=== PATIENT | male | born 1955 | race Caucasian/White ===

== ENCOUNTER 2017-08-07 11:34 | Emergency (ER) | payer OTHER ==
[~2017-08-07] VITALS: Ht 182.9 cm; Wt 93.0 kg
[2017-08-07 11:40] VITALS: BP 127/69
[2017-08-07] MEDS ORDERED: IBUPROFEN 600 MG TABLET PO ONE ×2 (12:56→13:00)
== END 2017-08-07 13:57 | disposition home or self-care (01) ==
LOC: ER 11:36
DX: L03.032 Cellulitis of left toe (principal); I10 Essential (primary) hypertension; F17.200 Nicotine dependence, unspecified, uncomplicated; G89.29 Other chronic pain
CPT/HCPCS: 73620; 99284; A4606; Z7610

== ENCOUNTER 2017-10-02 12:23 | Emergency (ER) | payer OTHER ==
[~2017-10-02] VITALS: Ht 182.9 cm; Wt 88.9 kg
[2017-10-02 12:23] VITALS: BP 98/69
--- NOTE | 2017-10-02 12:56 | NUR ---
PATIENT TO ED DT SOB X2 DAYS [employer]ATT[employer]. PATIENT IS AAO4. APPEARS IN NO APPARENT DISTRESS. SATIGN WELL ON ROOM AIR. HX OF ASTHMA
[2017-10-02] MEDS ORDERED: predniSONE 20 MG TABLET ONE (12:57)
[2017-10-02] MEDS ORDERED: predniSONE 20 MG TABLET PO ONE (13:00)
[2017-10-02] MEDS ORDERED: IPRATROPIUM NEB FS 0.5 MG/2.5 ML AMPUL.NEB NEB ONE (13:00)
[2017-10-02] MEDS: ALBUTEROL FS 2.5 MG/3 ML VIAL.NEB NEB ONE ×2 (13:02→13:11)
[2017-10-02] MEDS ORDERED: IPRATROPIUM NEB FS 0.5 MG/2.5 ML AMPUL.NEB ONE (13:02)
[2017-10-02] MEDS ORDERED: ALBUTEROL FS 2.5 MG/3 ML VIAL.NEB ONE (13:02)
== END 2017-10-02 13:37 | disposition home or self-care (01) ==
LOC: ER 12:24
DX: J45.901 Unspecified asthma with (acute) exacerbation (principal); I10 Essential (primary) hypertension; F17.200 Nicotine dependence, unspecified, uncomplicated
CPT/HCPCS: 94640; 99283; A4606; J7512; Z7610

== ENCOUNTER 2019-03-25 12:02 | Emergency (ER) | payer OTHER ==
[~2019-03-25] VITALS: Ht 182.9 cm; Wt 83.9 kg
[2019-03-25 12:14] VITALS: BP 124/68
== END 2019-03-25 13:51 | disposition home or self-care (01) ==
LOC: ER 12:02
DX: G89.29 Other chronic pain (principal); M54.5 Low back pain; F11.20 Opioid dependence, uncomplicated; I10 Essential (primary) hypertension; J45.909 Unspecified asthma, uncomplicated; F17.200 Nicotine dependence, unspecified, uncomplicated

== ENCOUNTER 2021-12-14 12:48 | Emergency (ER) | payer OTHER ==
[~2021-12-14] VITALS: Ht 182.9 cm; Wt 83.5 kg
[2021-12-14 13:08] VITALS: BP 162/97
--- NOTE | 2021-12-14 15:20 | NUR ---
TAKEN TO CT
[2021-12-14] MEDS ORDERED: HYDROCODONE/APAP 5/325MG TABLET ONE (15:30)
[2021-12-14] MEDS ORDERED: CYCLOBENZAPRINE 10 MG TABLET ONE (15:30)
[2021-12-14] MEDS ORDERED: HYDROCODONE/APAP 5/325MG TABLET PO ONE (15:30)
[2021-12-14] MEDS ORDERED: CYCLOBENZAPRINE 10 MG TABLET PO ONE (15:30)
[2021-12-14] MEDS ORDERED: OXYC5TAB3 PO (16:23)
[2021-12-14] MEDS ORDERED: IBUP-1955 PO (16:23)
[2021-12-14] MEDS ORDERED: METH4TAB3 PO (16:23)
[2021-12-14] MEDS ORDERED: CYCL10TA9 PO (16:23)
--- NOTE | 2021-12-14 16:33 | NUR ---
Patient discharged to home in stable condition. Written and verbal after care instructions given. Patient verbalizes understanding of instruction.
== END 2021-12-14 16:34 | disposition home or self-care (01) ==
LOC: ER 12:48
DX: G89.29 Other chronic pain (principal); M54.16 Radiculopathy, lumbar region; M54.50 Low back pain, unspecified; M25.562 Pain in left knee; I10 Essential (primary) hypertension; J45.909 Unspecified asthma, uncomplicated; Z79.1 Long term (current) use of non-steroidal anti-inflammatories (NSAID); Z79.891 Long term (current) use of opiate analgesic
CPT/HCPCS: 72131-TC

== ENCOUNTER → 2023-07-12 | Emergency (ER) | payer OTHER ==
[~2023-07-12] VITALS: Ht 182.9 cm; Wt 82.1 kg
[~2023-07-12] MED LIST: CYCL10TA9 PO; CYCLOBENZAPRINE 10 MG TABLET ONE; CYCLOBENZAPRINE 10 MG TABLET PO ONE; IBUP-1955 PO; KETOROLAC TROMETHAMINE INJ 30 MG/ML VIAL ONE; KETOROLAC TROMETHAMINE INJ 60 MG/2 ML VIAL IM ONE; METH4TAB3 PO; OXYC5TAB3 PO; oxyCODONE/APAP (5/325 MG) 1 UDTAB TABLET ONE; oxyCODONE/APAP (5/325 MG) 1 UDTAB TABLET PO ONE
[2023-07-12 08:39] VITALS: BP 152/81; TEMP 98.3; O2SAT 98
== END | disposition home or self-care (01) ==
LOC: ER 07:26
DX: M54.50 Low back pain, unspecified (principal); I10 Essential (primary) hypertension; J45.909 Unspecified asthma, uncomplicated
CPT/HCPCS: 99283; 96372; J1885